=== PATIENT | male | born 1975 | race Caucasian/White ===

== ENCOUNTER 2016-05-29 11:47 | Emergency (ER) ==
[2016-05-29 12:45] LABS: ALBUMIN 3.9 g/dL (3.5-5.0); CALCIUM 9.6 mg/dL (8.8-10.2); POTASSIUM 3.2 mmol/L (3.5-5.1); TOTAL BILIRUBIN 1.05 mg/dL (0.20-1.00); TOTAL PROTEIN 7.8 g/dL (6.3-8.3)
--- NOTE | 2016-05-29 12:57 | PROVIDER DOCUMENTATION ---
HPI-Headache - General Chief Complaint: Headache Stated Complaint: knowles x 3 Time Seen by Provider: 05/29/16 11:47 Source: patient Allergies/Adverse Reactions: Patient Allergies Allergy/AdvReac Type Severity Reaction Status Date / Time No Known Allergies Allergy Verified 05/29/16 11:55 Home Medications: Home Medication List Medication Instructions Recorded Confirmed Last Taken Type Amlodipine [Norvasc] 10 mg PO DAILY #180 tablet 11/27/14 05/29/16 04/04/15 Rx Metformin [Glucophage] 500 mg PO BID CC #180 tablet 11/27/14 05/29/16 04/04/15 Rx Lisinopril/Hydrochlorothiazide 1 each PO DAILY #30 tablet 02/28/15 05/29/1604/19 Rx [Lisinopril-Hctz 20-12.5 mg Tab] Metoprolol Tartrate 50 mg PO DAILY #30 tablet 02/28/15 05/29/16 04/04/15 Rx - History of Present Illness-Headache Nature of Presenting Problem: Pt is a 41 yom who came to the ED via EMS with a cc of having a headache for three days. Pt reports he is hypertensive and has diabetes. Pt reports his head has been killing him for the last three days. Pt had pain just moving around. Headache Location: reports: frontal Quality of Pain: reports: stabbing, throbbing Onset/Duration: reports: 3 days ago Timing: reports: still present Headache Context: reports: nothing Any recent trauma/injury?: reports: none Headache severity at the maximum: moderate Headache Exacerbated by:: reports: light, movement, position Review of Systems - Adult - REVIEW OF SYSTEMS - ADULT Constitutional: denies: chills, fever Eyes: denies: decreased vision, double vision Ears, Nose, Mouth & Throat: reports: no symptoms reported Cardiovascular: reports: no symptoms reported Respiratory: reports: no symptoms reported Gastrointestinal: reports: no symptoms reported Genitourinary: reports: no symptoms reported Musculoskeletal: denies: frequent leg cramps, joint swelling Integumentary: reports: no symptoms reported Neurological: reports: headache/migraines (frontal). denies: loss of balance, paresthesia Psychiatric: reports: no symptoms reported Endocrine: reports: no symptoms reported Hematologic/Lymphatic: reports: no symptoms reported Allergic/Immunologic: reports: no symptoms reported All Other Systems: Reviewed and Negative Past History - Adult - PAST MEDICAL HISTORY-ADULT Review of Records: reports: Old Records Reviewed, Nursing Assessment Review Major Childhood Illnesses: reports: denies history Cardiovascular: reports: A-Fib, HTN, hyperlipidemia Respiratory: reports: denies history Gastrointestinal: reports: ulcer Obstetrical/Gynecological: reports: denies history Genitourinary: reports: denies history Musculoskeletal: reports: denies history Neurological: reports: CVA Endocrine/Immune: reports: denies history Other Conditions: reports: denies history - PRIOR SURGERIES/PROCEDURES Surgical/Procedure History: reports: none - IMMUNIZATION STATUS Childhood Immunizations: See Nurse Assessment Flu Vaccine: See Nurse Assessment - FAMILY HISTORY Family History: reviewed, not pertinent - SOCIAL HISTORY Smoking: cigarettes Physical Exam- Neurological - Physical Exam-Neuro Initial Vital Signs Reviewed: Yes General Appearance: appears well, mild distress HENMT: normocephalic/atraumatic, moist mucous membranes, normal ENT inspection, TMs normal, pharynx normal Head Injury: no evidence of injury Neck: non-tender Head/Neck: 1 - headache Respiratory: chest non-tender Cardiovascular: normal peripheral pulses, regular rate, rhythm, no edema, no gallop, no JVD, no murmur Abdominal Exam: normal bowel sounds, non tender Lymphatic: no adenopathy 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 Exam: normal hearing Neurologic: grossly normal Integumentary: normal color, normal turgor, warm/dry Psych/Mental Status: normal mood/affect, normal thought content - Glascow Coma Scale Best Eye Response: (4) open spontaneously Best Verbal Response: (5) oriented Best Motor Response: (6) obeys commands Total Glascow Score: 15 Progress - PLAN OF CARE/RESULTS Progress/Plan/Lab Results: Vital Signs - 24 hr 05/29/16 11:48 Temperature 98.2 F Pulse Rate 97 H Respiratory 18 Rate Blood Pressure 140/101 O2 Sat by Pulse 97 Oximetry Orders Category Date Time Status HEAD W/O CONTRAST [CT] Stat Exams 05/29/16 12:26 Taken CBC WITH DIFF [HEME] Stat Lab 05/29/16 12:02 Results COMPREHENSIVE METABOLIC PANEL [CHEM] Stat Lab 05/29/16 12:02 Completed Laboratory Tests 05/29/16 12:02 Sodium 133 L Potassium 3.2 L Chloride 92 L Carbon Dioxide 26 Anion Gap 15 BUN 26 H Creatinine 1.8 H Estimated GFR/1.73 m2 41 BUN/Creatinine Ratio 14 Glucose 168 H Calculated Osmolality 275 Calcium 9.6 Total Bilirubin 1.05 H AST 12 ALT 12 Alkaline Phosphatase 81 Total Protein 7.8 Albumin 3.9 Globulin 3.9 Albumin/Globulin Ratio 1.0 - CT/MRI 1 CT Study: Head (1. Hemorrhage into the left lateral ventricle probably arising from the posterior left thalmus. 2. Chronic microvascular changes and atherosclerosis.) - CONSULTS/PCP/HOSPITALIST Notification #1 *Consult/PCP/Hospitalist*: Dr. Richardson Time Discussed: 13:11 (discussed about the pt blood pressure and said not to start medication. Pt will be transfered to [facility]) Consult Disposition: Admit (tranfer to [facility]) Departure - Departure Time of Disposition Order: 13:11 DIAGNOSIS: Hemorrhagic cerebrovascular accident (CVA) Hypertension Qualifiers: Hypertension type: unspecified secondary hypertension Qualified Code(s): I15.9 - Secondary hypertension, unspecified Head ache Qualifiers: Headache type: unspecified Headache chronicity pattern: unspecified pattern Intractability: intractable Qualified Code(s): R51 - Headache Disposition: [facility] 02 Certified Medical Emergency: Emergent Condition: Serious Referrals: None,PCP [Primary Care Provider] - Instructions: Migraine Headache, [id number]-[id number] Attestation - Scribe Verification/Attestation Scribe:: Bren Aguila Acting as Scribe for:: Dionicio Duran Scribe documention review:: This chart was documented by a scribe and accurately reflects the service the provider performed and the decisions made by the provider.
[2016-05-29] MEDS ORDERED: DILAUDID ONE (12:59)
[2016-05-29] MEDS ORDERED: ZOFRAN ONE (12:59)
[2016-05-29 13:01] LABS: BASO% 0.1 % (0.0-0.8); EOS# 0.01 X1000 (0.0-0.7); EOS% 0.1 % (0.0-10.0); HEMATOCRIT 49.5 % (42.0-52.0); HEMOGLOBIN 16.2 g/dL (14.0-18.0); LYMPH# 1.15 X1000 (1.2-3.4); LYMPH% 8.4 % (20.5-51.1); MANUAL DIFF NEEDED? NO; MCH 26.7 PG (27-31); MCHC 32.7 g/dL (33-37); MCV 81.7 FL (81-99); MONO# 0.71 X1000 (0.11-0.59); MONO% 5.2 % (1.7-9.3); MPV 9.5 FL (7.4-10.4); NEUT% 86.2 % (42.2-75.2); PLT 298 X1000 (130-400); RBC 6.06 XMIL (4.7-6.1)
--- NOTE | 2016-05-29 13:04 | Diag Imaging Result Document ---
PROCEDURE NAME: HEAD W/O CONTRAST - 05/29/2016 CT OF THE HEAD WITHOUT CONTRAST: FINDINGS: There are calcifications present in the vertebral and internal carotid arteries bilaterally. There is fresh blood in the left lateral ventricle. This appears to be arising from the posterior left thalamus. The thalamic component of the bleed is almost undetectable and it may be as little as 7 mm in diameter. There is no appreciable mass effect. There is some periventricular white matter lucency present. No previous studies are available for comparison. IMPRESSION: 1. Hemorrhage into the left lateral ventricle probably arising from the posterior left thalamus. 2. Chronic microvascular changes and atherosclerosis. Findings were discussed with Dr. Duran by telephone at 1250 hours.
[2016-05-29] MEDS ORDERED: DILAUDID IV ONE (13:08)
[2016-05-29] MEDS ORDERED: ZOFRAN IV ONE (13:09)
[2016-05-29] MEDS ORDERED: LABETALOL IV ONE (13:15)
[2016-05-29 13:36] VITALS: BP 134/87
--- NOTE | 2016-05-31 07:50 | EKG Report ---
Test Performed on : 05/29/2016 1:11:23 PM Test Reason : MANCIA Blood Pressure : / mmHG Vent. Rate : 091 BPM Atrial Rate : 091 BPM P-R Int : 206 ms QRS Dur : 110 ms QT Int : 394 ms P-R-T Axes : 054 007 117 degrees QTc Int : 484 ms Normal sinus rhythm. Possible Left atrial enlargement T wave abnormality, consider lateral ischemia Prolonged QT Abnormal ECG When compared with ECG of 06-APR-2015 14:51, DE interval has increased Vent. rate has decreased BY 57 BPM Unconfirmed Result
== END 2016-05-29 13:44 | disposition short-term general hospital (02) ==
LOC: EDBD → ED 11:47
DX: I62.9 Nontraumatic intracranial hemorrhage, unspecified (principal); R51 Headache; I10 Essential (primary) hypertension; E11.9 Type 2 diabetes mellitus without complications; E78.5 Hyperlipidemia, unspecified; Z79.899 Other long term (current) drug therapy; Z86.73 Personal history of transient ischemic attack (TIA), and cerebral infarction without residual deficits
CPT/HCPCS: 70450; 80053; 85025; 93005; J1170; J2405